=== PATIENT | female | born 1955 | race Caucasian/White ===

== ENCOUNTER 2021-03-17 19:40 | Outpatient (REF) | payer SELFPAY ==
[2021-03-17 20:05] LABS: Abs Immature Grans 0.03 10^3/uL (0.0-0.06); Absolute Basophil Count 0.07 10^3/uL (0.0-0.2); Absolute Eosinophil Count 0.17 10^3/uL (0.0-0.7); Absolute Lymphocyte Count 2.83 10^3/uL (1.2-3.4); Absolute Monocyte Count 1.15 10^3/uL (0.1-0.8); Absolute Neutrophil Count 3.35 10^3/uL (1.2-6.7); Basophils % 0.9; Eosinophils % 2.2; HCT 38.6 % (36.0-46.0); HGB 12.6 g/dL (11.2-15.7); Immature Grans % 0.4; Lymphocytes % 37.2; MCH 30.6 pg (27.0-33.0); MCHC 32.6 % (32.0-36.0); MCV 93.7 fL (80-95); MPV 11.8 fL (8.0-11.0); Monocytes % 15.1; Neutrophils % 44.2; Nucleated RBC 0 %; Platelet Count 405 10^3/uL (130-400); RBC 4.12 10^6/uL (3.93-5.22); RDW 13.5 % (11.7-14.6); RDW-SD 46.4 fL
[2021-03-17 20:22] LABS: ALT 25 U/L (14-59); AST 21 U/L (15-37); Alkaline Phosphatase 138 U/L (46-116); Anion Gap 8.5 mmol/L (3-11); BUN 10 mg/dL (7-18); Bilirubin, Total 0.5 mg/dL (0.2-1.0); C-Reactive Protein 0.72 mg/dL (0.0-0.3); CO2 29.5 mmol/L (21.0-32.0); CREATININE 1.1 mg/dL (0.55-1.02); Calcium 10.4 mg/dL (8.5-10.1); Chloride 105 mmol/L (98-107); Estimated GFR 49.69 (mL/min/1.73m2); Glucose 100 mg/dL (74-106); Sodium 143 mmol/L (136-145); Total Protein 6.8 g/dL (6.4-8.2)
== END 2021-03-17 19:41 | disposition home or self-care (01) ==
LOC: LBN 19:40
PROVIDERS: PCP Family Medicine; Visit Provider Family Medicine
DX: N18.30 Chronic kidney disease, stage 3 unspecified (principal); R65.20 Severe sepsis without septic shock; K35.33 Acute appendicitis with perforation, localized peritonitis, and gangrene, with abscess
CPT/HCPCS: 80053; 85025; 86140